=== PATIENT | female | born 1940 | race Caucasian/White ===

== ENCOUNTER → 2017-09-30 | Outpatient (CLI) | payer OTHER ==
[~2017-09-30] MED LIST: ASPIRIN EC81 M1 PO; AUGMENTIN 500-1 EACH PO; AZOPT OPHTH1 %/10 M1 OPHTHALMIC; BOTOX100 UNIT; CITRACAL-VIT D1 EAC2 PO; COMBIGAN EYE DR10 ML OPHTHALMIC; FARXIGA10 MG PO; GLUCOPHAGE500 MG PO; LIPITOR10 MG PO; LUMIGAN2.5 M1 OPHTHALMIC; MECLIZINE HCL25 M1 PO; MULTIVITAMINS PO; PROZAC 20 MG20 MG PO; SPIRONOLACTONE50 MG PO; VITAMIN B-12500 MCG PO
== END ==
LOC: M.RAD 10:43
DX: Z12.31 Encounter for screening mammogram for malignant neoplasm of breast (principal)

== ENCOUNTER 2018-05-27 09:41 | Inpatient (IN) | payer OTHER ==
[~2018-05-27] VITALS: Ht 157.5 cm; Wt 62.6 kg
--- NOTE | ~2018-05-27 | PROC ---
[address] [address] PROCEDURE REPORT Name: RICARDO BALDERAS Room: [address] IN .R.#: [id number] Admission: 05/27/18 Attend Phys: Cullen Haque MD Discharge: 05/29/18 Date of : 39 Report #: [id number] THIS REPORT FOR: //name// For GI report, please see the Provation report in Perceptive 7. By: 1629Medical Records Staff LAURA /MICHELL
[2018-05-27 09:41] VITALS: BP 153/69
[~2018-05-27 09:41] MED LIST changes: -AUGMENTIN 500-1 EACH PO; -CITRACAL-VIT D1 EAC2 PO; -FARXIGA10 MG PO; -VITAMIN B-12500 MCG PO
[2018-05-27] MEDS ORDERED: CITRACAL-VIT D1 EAC2 PO (09:57)
[2018-05-27] MEDS ORDERED: FARXIGA10 MG PO (09:57)
[2018-05-27] MEDS ORDERED: VITAMIN B-12500 MCG PO (09:58)
[2018-05-27] MEDS ORDERED: AUGMENTIN 500-1 EACH PO (09:59)
[2018-05-27 10:28] LABS: HEMATOCRIT 50.3 % (37.0-47.0); HEMOGLOBIN 16.6 gm/dL (12.0-15.0); MCH 31.8 pg (26.0-34.0); MCV 96.3 fL (80.0-100.0); MPV 8.1 fl. (7.2-11.1); NUCLEATED RBCS 0 /100WBC; PLATELET COUNT* 241 thou/uL (150-400); RBC 5.23 mil/uL (4.20-5.00); RDW-CV 12.8 % (10.5-14.5); WBC 9.6 thou/uL (4.0-11.0)
[2018-05-27 10:45] LABS: PROTIME 10.2 Seconds (9.20-11.50)
[2018-05-27 10:49] LABS: URINE BILIRUBIN NEGATIVE (Negative); URINE BLOOD NEGATIVE (Negative); URINE CLARITY CLEAR; URINE COLOR YELLOW; URINE GLUCOSE-RANDOM 3+ (Negative); URINE KETONES 2+ (Negative); URINE LEUKOCYTES-REFLEX NEGATIVE (Negative); URINE NITRITE-REFLEX NEGATIVE (Negative); URINE PROTEIN NEGATIVE (Negative); URINE UROBILINOGEN 0.2 E.U./dl (0.2-1.0)
[2018-05-27 10:54] LABS: ABSOLUTE LYMPHOCYTES 0.4 thou/uL (0.8-5.3); ABSOLUTE MONOCYTES 0.4 thou/uL (0.0-1.2); ABSOLUTE NEUTROPHILS 8.8 thou/uL (1.6-8.1); ANISOCYTOSIS 1+; PLATELET ESTIMATE ADEQUATE; POIKILOCYTOSIS 1+
[2018-05-27 11:01] LABS: ANION GAP 16 mmol/L (7-16); BUN 24 mg/dL (7-18); CALCIUM 10.1 mg/dL (8.5-10.1); CHLORIDE 101 mmol/L (98-107); CO2 20 mmol/L (21-32); CREATININE 0.7 mg/dL (0.6-1.3); GLUCOSE 236 mg/dL (70-99); POTASSIUM 3.8 mmol/L (3.5-5.1); SODIUM 137 mmol/L (136-145)
[2018-05-27 11:08] LABS: ALBUMIN 4.5 g/dL (3.4-5.0); ALKALINE PHOSPHATASE 105 U/L (46-116); LIPASE 592 U/L (73-393); SGOT 20 U/L (15-37); SGPT 25 U/L (30-65); TOTAL BILIRUBIN 0.6 mg/dL (<0.1-1.0); TOTAL PROTEIN 7.9 g/dL (6.4-8.2); TROPONIN-I LEVEL <0.06 ng/mL (<0.06)
[2018-05-27 12:55] VITALS: BP 144/72
--- NOTE | 2018-05-27 12:55 | NUR ---
ER ADMIT TO RM 225 TELEPHONE REPORT GIVEN PATIENT TO RM VIA CART ORIENTED TO RM AND CALL LIGHT DENIES PAIN
[2018-05-27 13:01] VITALS: BP 121/62
--- NOTE | 2018-05-27 14:36 | EKG ---
[place] [address] ELECTROCARDIOGRAM REPORT Name: ANDREYRICARDO Vic Room: [address] IN .R.#: [id number] Admission: 05/27/18 Attend Phys: Cullen Haque MD Discharge: Date of : 38 Report #: [id number] THIS REPORT FOR: //name// [facility] ED Test Date: 2018-05-27 Test Time: 10:21:31 Pat Name: RICARDO BALDERAS Department: Room: [facility] Gender: F Fuselage Framer: Manpreet SONG : 1940 Requested By: Ren Lundy Order Number: [id number] MD: Evens Guevara Measurements Intervals [place] Rate: 78 P: 54 DE: 210 QRS: 5 QRSD: 94 T: -8 QT: 374 QTc: 426 Interpretive Statements Sinus rhythm Possible left atrial enlargement Possible inferior infarct, old Possible anteroseptal infarct, old Compared to ECG 04/21/2012 17:21:18 No significant changes Electronically Signed On 05-27-2018 14:36:15 [employer] by Evens Guevara [email or web address] <ELECTRONICALLY SIGNED> By: Evens Guevara MD, FACC 05/27/18 1436 1021 1021 Evens Guevara MD, FAC /EPI
[2018-05-27 15:59] VITALS: BP 124/52
[2018-05-27 20:00] VITALS: BP 122/51
[2018-05-28] VITALS: BP 115/52
[2018-05-28 04:00] VITALS: BP 124/60
--- NOTE | 2018-05-28 05:53 | NUR ---
ASSUMED PATIENT CARE AT 1900. PATIENT RESTING IN BED, BRUNO CATH IN PLACE AND PATENT TO DEPENDENT DRAINAGE. DOES HAVE SOME RESIDUAL LEFT-SIDED WEAKNESS FROM PREVIOUS STROKE. NSR O THE MONITOR. UP WITH ONE ASSISST. NS INFUSING THROUGH PATENT IV AT A RATE ON 125ML/HR. NO COMLAINTS OF PAIN OR NAUSEA NOTED THROUGHOUT THE SHIFT. WILL CONTINUE TO MONITOR. ANGER CONTROL COUNSELOR AND HOURLY ROUNDING COMPLETED DOCUMENTED
[2018-05-28 05:58] LABS: ABSOLUTE EOSINOPHILS 0.1 thou/uL (0.0-0.7); ABSOLUTE LYMPHOCYTES 1.5 thou/uL (0.8-5.3); ABSOLUTE MONOCYTES 0.4 thou/uL (0.0-1.2); ABSOLUTE NEUTROPHILS 4.1 thou/uL (1.6-8.1); BASOPHILS 0.4 %; EOSINOPHILS 1.6 %; HEMATOCRIT 42.2 % (37.0-47.0); LYMPHOCYTES 24.6 %; MCH 31.6 pg (26.0-34.0); MCHC 33.3 g/dL (28.0-37.0); MCV 94.8 fL (80.0-100.0); MONOCYTES 6.9 %; MPV 8.4 fl. (7.2-11.1); NUCLEATED RBCS 0 /100WBC; PLATELET COUNT* 237 thou/uL (150-400); POLYS 66.5 %; RBC 4.45 mil/uL (4.20-5.00); RDW-CV 12.6 % (10.5-14.5); WBC 6.1 thou/uL (4.0-11.0)
[2018-05-28 06:08] LABS: CALCIUM 9.4 mg/dL (8.5-10.1); CREATININE 0.6 mg/dL (0.6-1.3); HEMOGLOBIN 14.1 gm/dL (12.0-15.0); POTASSIUM 3.8 mmol/L (3.5-5.1)
--- NOTE | 2018-05-28 07:15 | NUR ---
CHANGE OF SHIFT, BEDSIDE REPORT GIVEN PATIENT SEEN IN BED AND ASLEEP ASSUMED PATIENT CARE
[2018-05-28 08:00] VITALS: BP 138/63
[2018-05-28 12:00] VITALS: BP 151/67
--- NOTE | 2018-05-28 15:34 | NUR ---
Pt is A&O. Resides at home with her . Normally independent. No DME. No hx of HH or SNF. Goal is home at vt. Following.
[2018-05-28 16:05] VITALS: BP 128/66
[2018-05-28 20:00] VITALS: BP 113/51
[2018-05-29] VITALS (9 sets, daily range): BP systolic 109–165; BP diastolic 65–79
[2018-05-29 02:12] LABS: GLYCOHEMOGLOBIN (HGB A1C) 8.9 % (4.8-5.6)
[2018-05-29 04:45] LABS: HEMATOCRIT 43.7 % (37.0-47.0); HEMOGLOBIN 14.6 gm/dL (12.0-15.0); MCH 31.7 pg (26.0-34.0); MCHC 33.5 g/dL (28.0-37.0); MCV 94.5 fL (80.0-100.0); MPV 8.2 fl. (7.2-11.1); RBC 4.62 mil/uL (4.20-5.00); RDW-CV 12.8 % (10.5-14.5); WBC 4.8 thou/uL (4.0-11.0)
--- NOTE | 2018-05-29 05:26 | NUR ---
ASSUMED CARE OF PT AFTER REPORT AT 1930. PT A&OX4. VSS. PHYSICAL ASSESSMENT COMPLETED AND CHARTED. PT ON RA WITH 95% O2 SAT. PT TRACING SR 1ST DEG ON TELE. PT UP WITH 1 ASSIST TO RESTROOM. PT DENIES ANY PAIN, DIZZINESS OR DISCOMFORT. INSTRUCTED ON NPO POST MIDNIGHT FOR EGD TODAY. CONTRACTURE & WEAKNESS OF LEFT ARM NOTED RESIDUAL OF PREVIOUS STROKE. CALL LIGHT WITHIN REACH. BED IN LOW POSITION. BED ALARM ON.
--- NOTE | 2018-05-29 17:19 | NUR ---
PATIENT LEFT UNIT AT 1347. ALERT AND ORIENTED X4. UP WITH ASSIST X1 WITH CANE AND GAIT BELT. DENIES PAIN AND NAUSEA. TOLERATING DIET. EGD DONE TODAY. ALL PERSONAL ITEMS LEFT WITH PATIENT. DISCHARGE INSTRUCTIONS, PRESCRIPTIONS, AND NEW MEDICATION INFORMATION SENT WITH PATIENT. IV DC'D. VSS ON ROOM AIR. HOURLY ROUNDS HAVE BEEN MAINTAINED WHILE ON UNIT. LEFT WITH SPOUSE VIA CAR.
--- NOTE | 2018-06-10 12:30 | CON ---
[address] [address] CONSULTATION Name: RICARDO BALDERAS Room: [address] IN M.R.#: [id number] Admission: 05/27/18 Attend Phys: Cullen Haque MD Discharge: 05/29/18 Date of : 38 Report #: [id number] THIS REPORT FOR: //name// CC: Cullen Tena HISTORY OF PRESENT ILLNESS: The patient is a pleasant 78-year-old female with past medical history significant for hypertension, hyperlipidemia, stroke in 1993 with some resultant weakness, who is presenting for evaluation of nausea and vomiting. The patient reports her symptoms began rather abruptly yesterday with nausea, vomiting and dry heaving. The patient reports that she must have vomited more than 10 times and presented to another facility. At that facility, she was diagnosed with mild urinary tract infection and was placed on Augmentin. This seemed to have worsened her symptoms. The patient also reports that 2 days prior to presentation, she had Tacos at a new restaurant, and these did not "taste very well." The patient reports her symptoms have somewhat subsided since presentation. She does not have any significant abdominal pain, nausea, vomiting at this time. PAST MEDICAL HISTORY: As mentioned above. The patient has a past medical history of hypertension, hyperlipidemia, stroke and diabetes. PAST SURGICAL HISTORY: The patient had a complete hysterectomy in 1980. SOCIAL HISTORY: The patient denies smoking, alcohol or recreational drug use. FAMILY HISTORY: No significant family history noted. REVIEW OF SYSTEMS: A comprehensive 10-point review of systems is negative except already mentioned above. PHYSICAL EXAMINATION: VITAL SIGNS: Temperature 36.7, pulse rate 72, blood pressure 128/66, respirations 18. GENERAL: The patient is alert, awake, oriented x 3. HEENT: Pupils are equal, round, reactive to light and accommodation. Mucous membranes are moist. There is no congestion. LUNGS: Clear to auscultation bilateral. CARDIOVASCULAR: Rate and rhythm regular. S1, S2 present. ABDOMEN: Soft. There is no distention, guarding or rigidity. EXTREMITIES: Warm, well perfused. LABORATORY DATA: Hemoglobin 14.1, hematocrit 42.2, WBC count 6.1, platelet count 237. Sodium 141, potassium 3.8, chloride 107, bicarbonate 23, BUN 17, creatinine 0.6. INR 1.0. IMAGING: Abdominal and pelvic [place] [address] CONSULTATION Name: RICARDO BALDERAS Room: [address]#: [id number] Admission: 05/27/18 Attend Phys: Cullen Haque MD Discharge: 05/29/18 Date of : 39 Report #: [id number] lumbar spine, surgical changes of hysterectomy, clusters of the abdominal aorta and iliac arteries. Moderate ____ lung bases. ASSESSMENT AND PLAN: This is a very pleasant 78-year-old female presenting with multiple episodes of abdominal pain, nausea, vomiting. This may be related to food poisoning related to consumption of poorly cooked foods outside. The patient's symptoms are resolving on their own at this time. The patient has never had any EGD before and consider performing EGD tomorrow to rule out any mucosal disease. Further recommendations will be based on the results of EGD. <ELECTRONICALLY SIGNED> By: Eldon Reyes MD 06/10/18 1230 2017 1045Eldon Reyes MD /nt
== END 2018-05-29 13:47 | disposition home or self-care (01) | DRG 391 ==
LOC: M.ERS 09:41 → M.2W 11:34 → M.TBA-ER 11:34 → M.2W 13:05
PROVIDERS: Family Medicine; Internal Medicine; ADMIT Internal Medicine
PROC: 0DJ08ZZ Inspection of Upper Intestinal Tract, Via Natural or Artificial Opening Endoscopic (ICD-10-PCS; principal; 2018-05-29)
DX: R11.2 Nausea with vomiting, unspecified (principal); T36.0X5A Adverse effect of penicillins, initial encounter; G92 Toxic encephalopathy; E87.2 Acidosis; N39.0 Urinary tract infection, site not specified; K21.9 Gastro-esophageal reflux disease without esophagitis; E78.5 Hyperlipidemia, unspecified; E11.9 Type 2 diabetes mellitus without complications; E86.0 Dehydration; I10 Essential (primary) hypertension; H40.9 Unspecified glaucoma; K59.00 Constipation, unspecified; K57.90 Diverticulosis of intestine, part unspecified, without perforation or abscess without bleeding; E86.9 Volume depletion, unspecified; Z86.73 Personal history of transient ischemic attack (TIA), and cerebral infarction without residual deficits; Z88.1 Allergy status to other antibiotic agents; Z90.710 Acquired absence of both cervix and uterus; Z79.82 Long term (current) use of aspirin; Z79.899 Other long term (current) drug therapy

== ENCOUNTER → 2019-02-02 | Outpatient (CLI) | payer OTHER ==
[~2019-02-02] MED LIST changes: +AUGMENTIN 500-1 EACH PO; +CITRACAL-VIT D1 EAC2 PO; +FARXIGA10 MG PO; +VITAMIN B-12500 MCG PO
== END ==
LOC: M.RAD 01-26 15:30
DX: Z12.31 Encounter for screening mammogram for malignant neoplasm of breast (principal); M85.89 Other specified disorders of bone density and structure, multiple sites; N95.9 Unspecified menopausal and perimenopausal disorder

== ENCOUNTER 2019-03-10 08:10 | Inpatient (IN) | payer OTHER ==
[~2019-03-10] VITALS: Ht 160 cm; Wt 58.5 kg
[2019-03-10 08:20] VITALS: BP 173/82
[2019-03-10] MEDS ORDERED: METFORMIN HCL500 MG PO (08:24)
[2019-03-10 08:39] LABS: ABSOLUTE EOSINOPHILS 0.2 thou/uL (0.0-0.7); ABSOLUTE LYMPHOCYTES 1.6 thou/uL (0.8-5.3); ABSOLUTE MONOCYTES 0.4 thou/uL (0.0-1.2); ABSOLUTE NEUTROPHILS 5.8 thou/uL (1.6-8.1); BASOPHILS 0.5 %; EOSINOPHILS 1.9 %; HEMATOCRIT 48.7 % (37.0-47.0); HEMOGLOBIN 16.7 gm/dL (12.0-15.0); LYMPHOCYTES 20.4 %; MCH 32.4 pg (26.0-34.0); MCHC 34.2 g/dL (28.0-37.0); MCV 94.8 fL (80.0-100.0); MONOCYTES 5.2 %; MPV 7.7 fl. (7.2-11.1); NUCLEATED RBCS 0 /100WBC; PLATELET COUNT* 287 thou/uL (150-400); RBC 5.14 mil/uL (4.20-5.00); RDW-CV 12.9 % (10.5-14.5); WBC 8.1 thou/uL (4.0-11.0)
[2019-03-10 08:48] LABS: ANION GAP 11 mmol/L (7-16); BUN 20 mg/dL (7-18); CALCIUM 10.1 mg/dL (8.5-10.1); CHLORIDE 100 mmol/L (98-107); CO2 27 mmol/L (21-32); CREATININE 0.7 mg/dL (0.6-1.3); GLUCOSE 181 mg/dL (70-99); POTASSIUM 3.6 mmol/L (3.5-5.1); SODIUM 138 mmol/L (136-145)
[2019-03-10 08:52] LABS: APTT 33.1 Seconds (25.0-31.3); PROTIME 10.3 Seconds (9.20-11.50)
[2019-03-10 08:58] LABS: ALBUMIN 4.3 g/dL (3.4-5.0); ALKALINE PHOSPHATASE 97 U/L (46-116); NT-PRO BRAIN NAT PEPTIDE 96 pg/mL (<300); SGOT 16 U/L (15-37); SGPT 23 U/L (30-65); TOTAL BILIRUBIN 0.8 mg/dL (<0.1-1.0); TOTAL PROTEIN 8.1 g/dL (6.4-8.2); TROPONIN-I LEVEL <0.06 ng/mL (<0.06)
[2019-03-10 09:43] LABS: URINE BILIRUBIN NEGATIVE (Negative); URINE BLOOD NEGATIVE (Negative); URINE CLARITY CLEAR; URINE COLOR YELLOW; URINE GLUCOSE-RANDOM 3+ (Negative); URINE KETONES 2+ (Negative); URINE LEUKOCYTES-REFLEX NEGATIVE (Negative); URINE NITRITE-REFLEX NEGATIVE (Negative); URINE PROTEIN NEGATIVE (Negative); URINE SPECIFIC GRAVITY 1.015 (1.005-1.030); URINE UROBILINOGEN 0.2 E.U./dl (0.2-1.0)
--- NOTE | 2019-03-10 10:42 | NUR ---
REPORT GIVEN TO DUKE TURNER WHO IS TO ASSUME PT CARE INPATIENT NURSE.
[2019-03-10 10:43] VITALS: BP 124/61
[2019-03-10 11:00] VITALS: BP 154/73
--- NOTE | 2019-03-10 11:41 | EKG ---
[place] [address] ELECTROCARDIOGRAM REPORT Name: RAJI BALDERASNA THOR Room: [address] ADM IN M.R.#: [id number] Admission: 03/10/19 Attend Phys: Cullen Haque MD Discharge: Date of : 39 Report #: [id number] THIS REPORT FOR: //name// [facility] ED Test Date: 2019-03-10 Test Time: 08:26:43 Pat Name: RICARDO BALDERAS Department: Room: [facility] Gender: F Job Honer: : 1940 Requested By: Ren Lundy Order Number: [id number] MD: Amando Wilkinson Measurements Intervals [place] Rate: 85 P: 70 TN: 174 QRS: -1 QRSD: 91 T: -26 QT: 344 QTc: 409 Interpretive Statements Sinus rhythm Ventricular premature complex Inferior infarct, age indeterminate Anterior infarct, old Compared to ECG 05/27/2018 10:21:31 Ventricular premature complex(es) now present Myocardial infarct finding still present Electronically Signed On 03-10-2019 11:40:45 CDT by Amando Wilkinson [email or web address] <ELECTRONICALLY SIGNED> By: Amando Wilkinson MD, [facility] 03/10/19 1140 0826 Amando Wilkinson MD, [facility] /EPI
[2019-03-10 15:48] VITALS: BP 145/68
--- NOTE | 2019-03-10 16:22 | NUR ---
PT ADMITTED TO ROOM 208 AROUND 1100 TODAY FOR DIZZINESS. NEUROLOGY CONSULTED AND ORDERED MRI'S FOR PT. UNABLE TO COMPLETE TODAY D/T MRI MACHINE UNDER MAINTENANCE. PT STATES NAUSEA HAS SUBSIDED SINCE BEING IN ED. DIZZINESS HAS IMPROVED BUT IS STILL NOTICABLE WHEN AMBULATING TO BATHROOM. VSS. TELE SR WITH PVCS. NO OTHER CONCERNS AT THIS TIME. CLWR. WCTM.
[2019-03-10 19:50] VITALS: BP 121/64
[2019-03-11] VITALS: BP 126/61
[2019-03-11 04:00] VITALS: BP 142/69
[2019-03-11 05:26] LABS: ABSOLUTE EOSINOPHILS 0.2 thou/uL (0.0-0.7); ABSOLUTE LYMPHOCYTES 2.2 thou/uL (0.8-5.3); ABSOLUTE MONOCYTES 0.4 thou/uL (0.0-1.2); ABSOLUTE NEUTROPHILS 2.1 thou/uL (1.6-8.1); BASOPHILS 0.7 %; EOSINOPHILS 3.1 %; HEMATOCRIT 40.5 % (37.0-47.0); LYMPHOCYTES 45.5 %; MCH 31.9 pg (26.0-34.0); MCHC 33.6 g/dL (28.0-37.0); MCV 95.2 fL (80.0-100.0); MONOCYTES 7.3 %; MPV 7.8 fl. (7.2-11.1); NUCLEATED RBCS 0 /100WBC; PLATELET COUNT* 234 thou/uL (150-400); POLYS 43.4 %; RBC 4.26 mil/uL (4.20-5.00); RDW-CV 12.3 % (10.5-14.5); WBC 4.9 thou/uL (4.0-11.0)
[2019-03-11 05:34] LABS: HEMOGLOBIN 13.6 gm/dL (12.0-15.0)
[2019-03-11 05:36] LABS: CHOLESTEROL 197 mg/dL (<200); HDL CHOLESTEROL 39 mg/dL (>40); LDL CHOLESTEROL 136 mg/dL (<100); TC:HDL 5.1 Ratio (Not establshd); TRIGLYCERIDE 114 mg/dL (<150); VLDL 23 mg/dL (<40)
[2019-03-11 05:38] LABS: CALCIUM 9.1 mg/dL (8.5-10.1); CREATININE 0.6 mg/dL (0.6-1.3); POTASSIUM 3.7 mmol/L (3.5-5.1)
[2019-03-11 05:43] LABS: SERUM ASSESSMENT Clear
--- NOTE | 2019-03-11 07:47 | NUR ---
PT CARE ASSUMED AT 1930. SAT MAINTAINED IN RA. CALL LIGHT WITHIN REACH AND BED IN LOW POSITION. ALERT AND ORIENTED X4. DENIES PAIN AND SOB. PT STIL COMPLAINS OF DIZZINESS AT TIMES. UP WITH ASSIST. HOURLY ROUNDING DONE FOR PT SAFETY.
[2019-03-11 08:00] VITALS: BP 128/57
--- NOTE | 2019-03-11 08:00 | NUR ---
ASSUMED PT. CARE AND RECEIVED REPORT AT 0730. PT A/OX4, VSS, MONITOR ON TRACING SR. PT. DENIES CURRENT PAIN/SOB. REPORTS DIZZINESS HAS IMPROVED SINCE ADMISSION, HOWEVER IS STILL PRESENT AND WORSE WHEN LAYING DOWN THAN MOVING. FULL ASSESSMENT COMPLETED, REFER TO CHARTING. FALL PRECUATIONS IN PLACE, CALL LIGHT IN REACH.
[2019-03-11 12:27] VITALS: BP 132/64
[2019-03-11 14:00] VITALS: BP 132/64
[2019-03-11] MEDS ORDERED: LIPITOR40 MG PO (14:30)
--- NOTE | 2019-03-11 14:35 | NUR ---
I have reviewed the documentation by PHANI CHENG from 03/10/19 to 03/11/19 and I concur with it. ERINN STEELE
--- NOTE | 2019-03-11 15:13 | NUR ---
DC ORDERS RECEIVED. IV AND MONITOR REMOVED. PT. GIVEN DC INSTRUCTIONS, SCRIPTS, AND CARENOTES. PT. LEFT VIA WHEELCHAIR TO RETURN HOME IN PERSONAL VEHICLE WITH SPOUSE, ALL BELONGINGS ACCOUNTED FOR.
--- NOTE | 2019-03-12 10:45 | CON ---
[facility] [address] [place] [address] CONSULTATION Name: ANDREYRICARDO THOR Room: [address] IN M.R.#: [id number] Admission: 03/10/19 Attend Phys: Cullen Haque MD Discharge: 03/11/19 Date of : 39 Report #: [id number] THIS REPORT FOR: //name// CC: Cullen Mccarthy DATE OF SERVICE: 03/11/2019 HISTORY OF PRESENT ILLNESS: This is an 79-year-old female patient who was evaluated by me for any neurological etiology for the patient's dizziness. The patient was seen last night as well as this morning. She believes the dizziness is better. Dizziness was nonspecific with the room spinning. She does not know any aggravating or relieving factors for that. REVIEW OF SYSTEMS: Positive for stroke on the left side. This was long time ago. She still takes aspirin. REVIEW OF SYSTEMS: A 14-point review of system was carried out. She had a stroke in the past, but she has been stable for a long time. She had hysterectomy in the past. She has a history of diabetes. PAST MEDICAL HISTORY: Positive for stroke affecting the left side of the body. FAMILY HISTORY: Negative for early-age stroke. SOCIAL HISTORY: She does not drink any alcohol. PHYSICAL EXAMINATION: NEUROLOGIC: The patient is alert, responsive, able to follow simple and complex command. She has left spastic hemiparesis. Rest of the neurological examinations appear noncontributory. CARDIAC: Unremarkable. VITAL SIGNS: Blood pressure is 132/64, pulse is 76 and temperature is 97.6. LABORATORY DATA: Indicate a normal white count. IMAGING: MRIs and MRA were reviewed. They were unremarkable. IMPRESSION AND PLAN: It is unlikely that there is any neurological etiology for the patient's symptoms. I will suggest checking for other etiologies including ENT and cardiac etiology. If none is found in that regard and the patient continued to be symptomatic, she should see us back in the office. A total of 50 minutes of time was spent taking care [place] [address] CONSULTATION Name: RICARDO BALDERAS Room: [address]#: [id number] Admission: 03/10/19 Attend Phys: Cullen Haque MD Discharge: 03/11/19 Date of : 39 Report #: [id number] majority of that time was spent counseling this patient and coordinating her care. <ELECTRONICALLY SIGNED> By: Yaniv Stone MD 03/12/19 1045 1420 2151Ploida Stone MD /nt
== END 2019-03-11 15:15 | disposition home or self-care (01) | DRG 149 ==
LOC: M.ERS 08:10 → M.2W 09:00 → M.TBA-ER 09:00 → M.2W 10:51
PROVIDERS: Family Medicine; ADMIT Internal Medicine
DX: R42 Dizziness and giddiness (principal); I69.354 Hemiplegia and hemiparesis following cerebral infarction affecting left non-dominant side; H40.9 Unspecified glaucoma; E11.9 Type 2 diabetes mellitus without complications; I10 Essential (primary) hypertension; K21.9 Gastro-esophageal reflux disease without esophagitis; E78.5 Hyperlipidemia, unspecified; Z90.710 Acquired absence of both cervix and uterus; Z88.1 Allergy status to other antibiotic agents; Z88.2 Allergy status to sulfonamides; Z88.8 Allergy status to other drugs, medicaments and biological substances; Z79.82 Long term (current) use of aspirin; Z79.899 Other long term (current) drug therapy

== ENCOUNTER 2019-12-03 14:52 | Inpatient (IN) | payer MEDICARE ==
[~2019-12-03] VITALS: Ht 165.1 cm; Wt 69.2 kg
[~2019-12-03 14:52] MED LIST changes: +LIPITOR40 MG PO; +METFORMIN HCL500 MG PO
[2019-12-03 14:53] VITALS: BP 140/66
[2019-12-03 15:41] LABS: APTT 24.7 Seconds (25.0-31.3); INR 1.1; PROTIME 11.1 Seconds (9.20-11.50)
[2019-12-03 16:14] LABS: ABSOLUTE LYMPHOCYTES 1.2 thou/uL (0.8-5.3); ABSOLUTE MONOCYTES 0.5 thou/uL (0.0-1.2); ABSOLUTE NEUTROPHILS 8.1 thou/uL (1.6-8.1); BASOPHILS 0.5 %; EOSINOPHILS 0.1 %; HEMOGLOBIN 15.1 gm/dL (12.0-15.0); LYMPHOCYTES 12.5 %; MCH 32.9 pg (26.0-34.0); MCHC 35.1 g/dL (28.0-37.0); MCV 93.6 fL (80.0-100.0); MPV 8.1 fl. (7.2-11.1); NUCLEATED RBCS 0 /100WBC; PLATELET COUNT* 300 thou/uL (150-400); POLYS 81.9 %; RDW-CV 12.9 % (10.5-14.5); WBC 9.8 thou/uL (4.0-11.0)
[2019-12-03 16:19] LABS: CALCIUM 9.7 mg/dL (8.5-10.1); CREATININE 0.8 mg/dL (0.6-1.3); POTASSIUM 3.6 mmol/L (3.5-5.1)
[2019-12-03 16:32] LABS: ALBUMIN 4.6 g/dL (3.4-5.0); TOTAL PROTEIN 8.3 g/dL (6.4-8.2)
[2019-12-03 17:27] LABS: URINE BILIRUBIN NEGATIVE (Negative); URINE BLOOD NEGATIVE (Negative); URINE CLARITY CLEAR; URINE COLOR YELLOW; URINE GLUCOSE-RANDOM TRACE (Negative); URINE KETONES 2+ (Negative); URINE LEUKOCYTES-REFLEX NEGATIVE (Negative); URINE NITRITE-REFLEX NEGATIVE (Negative); URINE PROTEIN TRACE (Negative); URINE SPECIFIC GRAVITY 1.015 (1.005-1.030); URINE UROBILINOGEN 0.2 E.U./dl (0.2-1.0)
[2019-12-03 18:08] VITALS: BP 131/58
[2019-12-03 20:00] VITALS: BP 141/73
[2019-12-03 23:36] VITALS: BP 148/91
[2019-12-04 04:00] VITALS: BP 138/64
[2019-12-04 04:47] LABS: ABSOLUTE LYMPHOCYTES 1.8 thou/uL (0.8-5.3); ABSOLUTE MONOCYTES 0.7 thou/uL (0.0-1.2); ABSOLUTE NEUTROPHILS 6.5 thou/uL (1.6-8.1); BASOPHILS 0.3 %; EOSINOPHILS 0.5 %; HEMATOCRIT 36.7 % (37.0-47.0); LYMPHOCYTES 19.6 %; MCH 33.1 pg (26.0-34.0); MCHC 35.3 g/dL (28.0-37.0); MCV 93.9 fL (80.0-100.0); MPV 8.5 fl. (7.2-11.1); NUCLEATED RBCS 0 /100WBC; PLATELET COUNT* 247 thou/uL (150-400); POLYS 71.6 %; RBC 3.91 mil/uL (4.20-5.00); RDW-CV 12.4 % (10.5-14.5); WBC 9.1 thou/uL (4.0-11.0)
[2019-12-04 04:55] LABS: CALCIUM 8.9 mg/dL (8.5-10.1); CREATININE 0.6 mg/dL (0.6-1.3); POTASSIUM 3.1 mmol/L (3.5-5.1)
--- NOTE | 2019-12-04 07:17 | NUR ---
ASSUMED PT CARE AT 1915. NURSING ASSESSMENT COMPLETED AT START OF SHIFT. SR WITH 1D ON HEAD OF MARKETING. PT C/O HEADACHE AND EARACHE THIS SHIFT, TYLENOL NOT EFFECTIVE. DR. ESCAMILLA NOTIFIED AND NEW ORDERS RECEIVED. PT C/O NAUSEAX2 THIS SHIFT. PRN ZOFRAN ADMINISTERED AND EFFECTIVE. HIGH FALL PRECAUTIONS IN PLACE. CALL LIGHT WITHIN REACH.
[2019-12-04 07:39] VITALS: BP 144/70
--- NOTE | 2019-12-04 11:07 | EKG ---
[place] [address] ELECTROCARDIOGRAM REPORT Name: RICARDO BALDERAS Room: [address] M.R.#: [id number] Admission: 12/03/19 Attend Phys: Cullen Haque, Discharge: Date of : 39 Date of Service: 12/03/19 1602 Report #: [id number] THIS REPORT FOR: //name// [facility] ED Test Date: 2019-12-03 Test Time: 16:02:34 Pat Name: RICARDO BALDERAS Department: Room: [facility] Gender: F Talent Acquisition Administrator: R[place] : 1940 Requested By: Ren Lundy Order Number: [id number] MD: Christ Butler Measurements Intervals [place] Rate: 96 P: 55 [place]: 190 QRS: 21 QRSD: 93 T: -10 QT: 343 QTc: 434 Interpretive Statements Sinus rhythm Probable left atrial enlargement Inferior infarct, old possible Anterior infarct, old Compared to ECG 03/10/2019 08:26:43 Ventricular premature complex(es) no longer present Myocardial infarct finding still present Electronically Signed On 12-04-2019 11:05:29 CDT by Christ Butler [email or web address] <ELECTRONICALLY SIGNED> By: Christ Butler MD, [facility] 12/04/19 1105 160 1602 Christ Butler MD, [facility] /EPI
[2019-12-04 11:46] VITALS: BP 145/77
--- NOTE | 2019-12-04 15:22 | NUR ---
Pt is A&O. Resides at home with . Independent. Pt has a cane for mobility. No o2. Hx of HH post surgery in 1993. Hx of acute rehab in 1993. Pt plans on f/u with [facility] regarding botox injections for her side. Goal is home at ne. Pt will either dc today or tomorrow pending further testing. Following
[2019-12-04 16:11] VITALS: BP 149/70
--- NOTE | 2019-12-04 17:01 | NUR ---
PT REPORTS HEADACHE WITH VISION BLURRY. DR ESCAMILLA AND DR SLOAN NOTIFIED. DR LUTHER JACOBVES IT IS A MIGRAINE. PRN HYDROCODONE GIVEN. NO FURHTER ORDERS.
[2019-12-04 19:15] VITALS: BP 146/73
[2019-12-05 00:14] VITALS: BP 118/61
[2019-12-05 04:17] VITALS: BP 120/56
--- NOTE | 2019-12-05 05:49 | NUR ---
patient progressing towards goals: pain and nausea managed with medication per mar and relaxation techniques. patient up with assist x1 to bedside commode. call light within reach
[2019-12-05 08:00] VITALS: BP 132/63
[2019-12-05 13:10] VITALS: BP 153/72
[2019-12-05 13:53] LABS: CALCIUM 9.6 mg/dL (8.5-10.1); CREATININE 0.8 mg/dL (0.6-1.3); POTASSIUM 3.5 mmol/L (3.5-5.1)
[2019-12-05 13:58] LABS: ALBUMIN 3.9 g/dL (3.4-5.0); TOTAL BILIRUBIN 0.6 mg/dL (<0.1-1.0); TOTAL PROTEIN 7.6 g/dL (6.4-8.2)
[2019-12-05 14:21] LABS: ABSOLUTE EOSINOPHILS 0.1 thou/uL (0.0-0.7); ABSOLUTE LYMPHOCYTES 1.5 thou/uL (0.8-5.3); ABSOLUTE MONOCYTES 0.5 thou/uL (0.0-1.2); ABSOLUTE NEUTROPHILS 4.5 thou/uL (1.6-8.1); BASOPHILS 0.5 %; EOSINOPHILS 1.8 %; HEMATOCRIT 40.6 % (37.0-47.0); HEMOGLOBIN 14.1 gm/dL (12.0-15.0); LYMPHOCYTES 22.6 %; MCH 33.2 pg (26.0-34.0); MCHC 34.7 g/dL (28.0-37.0); MCV 95.6 fL (80.0-100.0); MPV 8.4 fl. (7.2-11.1); NUCLEATED RBCS 0 /100WBC; PLATELET COUNT* 267 thou/uL (150-400); POLYS 68.1 %; RBC 4.25 mil/uL (4.20-5.00); RDW-CV 12.1 % (10.5-14.5); WBC 6.6 thou/uL (4.0-11.0)
[2019-12-05 16:21] LABS: CHOLESTEROL 133 mg/dL (<200); HDL CHOLESTEROL 49 mg/dL (>40); LDL CHOLESTEROL 66 mg/dL (<100); TC:HDL 2.7 Ratio (Not establshd); TRIGLYCERIDE 94 mg/dL (<150); VLDL 19 mg/dL (<40)
[2019-12-05 16:26] LABS: SERUM ASSESSMENT Clear
[2019-12-05 16:42] VITALS: BP 145/83
[2019-12-05 16:59] LABS: URINE BILIRUBIN NEGATIVE (Negative); URINE BLOOD NEGATIVE (Negative); URINE CLARITY CLEAR; URINE COLOR STRAW; URINE GLUCOSE-RANDOM TRACE (Negative); URINE KETONES NEGATIVE (Negative); URINE LEUKOCYTES NEGATIVE (Negative); URINE NITRITE NEGATIVE (Negative); URINE PROTEIN NEGATIVE (Negative); URINE SPECIFIC GRAVITY <= 1.005 (1.005-1.030); URINE UROBILINOGEN 0.2 E.U./dl (0.2-1.0)
[2019-12-05 20:00] VITALS: BP 154/80
[2019-12-05] MEDS ORDERED: BRIMONIDINE TART5 ML EA. EYE (20:31)
[2019-12-05] MEDS ORDERED: LATANOPROST 0.2.5 ML OPHTHALMIC (20:32)
[2019-12-05] MEDS ORDERED: COSOPT OCUMETER10 M1 EA. EYE (20:32)
[2019-12-05] MEDS ORDERED: DORZOLAMIDE HCL10 ML EA. EYE (20:35)
[2019-12-06 00:33] VITALS: BP 125/65
[2019-12-06 04:38] LABS: ALBUMIN 3.3 g/dL (3.4-5.0); CALCIUM 9.2 mg/dL (8.5-10.1); CREATININE 0.7 mg/dL (0.6-1.3); POTASSIUM 3.4 mmol/L (3.5-5.1); TOTAL BILIRUBIN 0.5 mg/dL (<0.1-1.0); TOTAL PROTEIN 6.4 g/dL (6.4-8.2)
--- NOTE | 2019-12-06 05:44 | NUR ---
ASSUMED PT CARE AT 1930. NURSING ASSESSMENT COMPLETED AT START OF SHIFT. PT VOICED NO CONCERNS THIS SHIFT. DENIES N/V. SR ON HEALTHCARE CONSULTANT. HOURLY ROUNDING COMPLETED. HIGH FALL PRECAUTIONS IN PLACE. CALL LIGHT WITHIN REACH.
[2019-12-06 06:00] VITALS: BP 156/85
[2019-12-06 07:37] VITALS: BP 141/65
[2019-12-06 12:14] VITALS: BP 152/73
--- NOTE | 2019-12-06 16:48 | NUR ---
ASSUMED PT CARE AT 0700, PT A&O X4, UP WITH ASSIST X1 AND CANE, PT APPEARS MUCH STRONGER IN HER LOWER EXTREMITIES THIS SHIFT, REMAINS FLACCID IN LEFT UPPER EXTREMITY FROM PREVIOUS CVA, DATA COMMUNICATIONS TECHNICIAN TRACING SINUS RHYTHM. PT HAS NOT HAD ANY INCONTINENT EPISODES THIS SHIFT, CONT TO TRANSFER TO BEDSIDE COMMODE, HOURLY ROUNDING COMPLETED.
[2019-12-06 17:12] VITALS: BP 130/59
[2019-12-06 20:00] VITALS: BP 126/62
[2019-12-07] VITALS: BP 128/64
[2019-12-07 02:07] LABS: GLYCOHEMOGLOBIN (HGB A1C) 6.8 % (4.8-5.6)
[2019-12-07 04:00] VITALS: BP 154/75
--- NOTE | 2019-12-07 05:53 | NUR ---
ASSUMED PT CARE AT 1930. NURSING ASSESSMENT COMPLETED AT START OF SHIFT. PT C/O HEADACHE THIS SHIFT X1. PRN PAIN MED ADMINISTERED/ SEE EMAR FOR DOCUMENTATION. HIGH FALL PRECAUTIONS IN PLACE. CALL LIGHT WITHIN REACH.
[2019-12-07 15:41] LABS: URINE BILIRUBIN NEGATIVE (Negative); URINE BLOOD NEGATIVE (Negative); URINE CLARITY CLEAR; URINE COLOR YELLOW; URINE GLUCOSE-RANDOM TRACE (Negative); URINE KETONES NEGATIVE (Negative); URINE LEUKOCYTES NEGATIVE (Negative); URINE NITRITE NEGATIVE (Negative); URINE PROTEIN NEGATIVE (Negative); URINE UROBILINOGEN 0.2 E.U./dl (0.2-1.0)
--- NOTE | 2019-12-07 15:44 | NUR ---
Pt declined skilled or rehab, Pt discharging to home today.
[2019-12-07 16:14] VITALS: BP 120/69
[2019-12-07 16:23] VITALS: BP 120/69
[2019-12-07] MEDS ORDERED: PLAVIX 75 MG TA75 MG PO (17:27)
--- NOTE | 2019-12-07 18:45 | NUR ---
ASSUMED PT CARE AT 0700, PT A&O X4 BUT FORGETFUL, VSS, RA, DIRECTOR OF REAL ESTATE TRACING SINUS RHYTHM, UP WITH ASSIST X1 AND QUAD CANE. PT DISCHARGED HOME AT APPROX 1830 WITH SON, PT AND SON EDUCATED ON ALL DISCHARGE INSTRUCTIONS INCLUDING FOLLOW UP APPOINTMENTS AND MEDICATIONS. IV AND DIRECTOR OF REAL ESTATE REMOVED, HOURLY ROUNDING COMPLETED.
== END 2019-12-07 18:30 | disposition home or self-care (01) | DRG 64 ==
LOC: M.ERS 14:52 → M.2W 17:05 → M.TBA-ER 17:05 → M.2W 19:39 → M.TBA-ER 19:39 → M.2W 20:11 → M.TBA-ER 20:11 → M.2W 20:51
PROVIDERS: Family Medicine; Internal Medicine; Psychiatry & Neurology Neurology; ADMIT Internal Medicine
DX: I63.9 Cerebral infarction, unspecified (principal); G92 Toxic encephalopathy; I69.354 Hemiplegia and hemiparesis following cerebral infarction affecting left non-dominant side; K21.9 Gastro-esophageal reflux disease without esophagitis; E78.5 Hyperlipidemia, unspecified; R11.2 Nausea with vomiting, unspecified; E86.0 Dehydration; E11.9 Type 2 diabetes mellitus without complications; G43.111 Migraine with aura, intractable, with status migrainosus; H40.9 Unspecified glaucoma; T45.515A Adverse effect of anticoagulants, initial encounter; Z90.710 Acquired absence of both cervix and uterus; Z79.82 Long term (current) use of aspirin; Z79.84 Long term (current) use of oral hypoglycemic drugs; Z79.899 Other long term (current) drug therapy; Z88.1 Allergy status to other antibiotic agents; Z88.2 Allergy status to sulfonamides; Z79.01 Long term (current) use of anticoagulants; Y92.89 Other specified places as the place of occurrence of the external cause

== ENCOUNTER 2020-09-04 19:02 | Observation (INO) | payer MEDICARE ==
[~2020-09-04] VITALS: Ht 162.6 cm; Wt 62.6 kg
[~2020-09-04 19:02] MED LIST changes: +BRIMONIDINE TART5 ML EA. EYE; +COSOPT OCUMETER10 M1 EA. EYE; +DORZOLAMIDE HCL10 ML EA. EYE; +LATANOPROST 0.2.5 ML OPHTHALMIC; +PLAVIX 75 MG TA75 MG PO
[2020-09-04 19:05] VITALS: BP 134/80
[2020-09-04 19:39] LABS: ABSOLUTE EOSINOPHILS 0.1 thou/uL (0.0-0.7); ABSOLUTE LYMPHOCYTES 1.3 thou/uL (0.8-5.3); ABSOLUTE MONOCYTES 0.6 thou/uL (0.0-1.2); ABSOLUTE NEUTROPHILS 7.1 thou/uL (1.6-8.1); BASOPHILS 0.4 %; EOSINOPHILS 0.9 %; HEMOGLOBIN 13.5 gm/dL (12.0-15.0); LYMPHOCYTES 14.5 %; MCH 32.1 pg (26.0-34.0); MCHC 34.5 g/dL (28.0-37.0); MONOCYTES 6.8 %; MPV 7.6 fl. (7.2-11.1); NUCLEATED RBCS 0 /100WBC; PLATELET COUNT* 322 thou/uL (150-400); POLYS 77.4 %; RBC 4.19 mil/uL (4.20-5.00); RDW-CV 12.2 % (10.5-14.5); WBC 9.2 thou/uL (4.0-11.0)
[2020-09-04 19:48] LABS: CALCIUM 8.5 mg/dL (8.5-10.1); CREATININE 0.8 mg/dL (0.6-1.3); POTASSIUM 3.8 mmol/L (3.5-5.1)
[2020-09-04 19:50] LABS: PROTIME 10.6 Seconds (9.20-11.50)
[2020-09-04 19:59] LABS: ALBUMIN 3.9 g/dL (3.4-5.0); TOTAL BILIRUBIN 0.3 mg/dL (<0.1-1.0); TOTAL PROTEIN 7.2 g/dL (6.4-8.2)
[2020-09-04 22:05] LABS: URINE BILIRUBIN NEGATIVE (Negative); URINE BLOOD NEGATIVE (Negative); URINE CLARITY CLEAR; URINE COLOR YELLOW; URINE GLUCOSE-RANDOM 1+ (Negative); URINE KETONES 1+ (Negative); URINE LEUKOCYTES-REFLEX NEGATIVE (Negative); URINE NITRITE-REFLEX NEGATIVE (Negative); URINE PROTEIN 1+ (Negative); URINE SPECIFIC GRAVITY >= 1.030 (1.005-1.030)
[2020-09-05 00:45] VITALS: BP 124/62
[2020-09-05 01:00] VITALS: BP 116/61
--- NOTE | 2020-09-05 01:00 | NUR ---
RECEIVED REPORT FROM ER, PT TO ROOM. AMBULATED TO BR WITH ASSIST DUE TO LT ARM WEAKNESS AND DIZZINESS. GAIT STEADY. TELEMETRY APPLIED SHOWING SR. C/O NECK AND HEAD PAIN. WILL GIVE MED. SEE ADMISSION ASSESSMENT AND HX. WILL CONT TO MONITOR AND ASSIST NEEDED.
[2020-09-05 05:29] VITALS: BP 117/59
--- NOTE | 2020-09-05 07:59 | NUR ---
SLEPT WELL AFTER TYLENOL GIVEN. C/O HEAD AND NECK PAIN. ASSISTED TO BSC, MOVES WELL. TELEMETRY CONT TO SHOW SR. HS GOALS OF REST AND SAFETY ACHIEVED. HOURLY ROUNDING OBSERVED.
--- NOTE | 2020-09-05 11:12 | EKG ---
[place] [address] ELECTROCARDIOGRAM REPORT Name: RICARDO BALDERAS Room: [address]R.#: [id number] Admission: 09/04/20 Attend Phys: Wally Salazar, Discharge: Date of : 38 Date of Service: 09/04/201916 Report #: [id number] THIS REPORT FOR: //name// [facility] ED Test Date: 2020-09-04 Test Time: 19:17:49 Pat Name: RICARDO BALDERAS Department: Room: [facility] Gender: F Squeegeer [facility]: [facility] : 1940 Requested By: Kathleen Osman Order Number: [id number] MD: Amando Wilkinson Measurements Intervals [place] Rate: 84 P: 101 NE: 179 QRS: 43 QRSD: 84 T: 31 QT: 371 QTc: 439 Interpretive Statements Sinus rhythm Anterior infarct, old Compared to ECG 12/03/2019 16:02:34 No significant changes Electronically Signed On 09-05-2020 11:12:27 PROGRAM [employer]OC[employer] by Amando Wilkinson [email or web address] <ELECTRONICALLY SIGNED> By: Amando Wilkinson MD, FACC 09/05/20 1112 16 16 Amando Wilkinson MD, [facility] /EPI
[2020-09-05 12:00] VITALS: BP 119/67
--- NOTE | 2020-09-05 14:26 | NUR ---
cm completed the initial assessment. pt is a&ox4. pt is semi-dependent on some cares. pt stated her spouse usu helps her w/cares. pt is from home w/spouse; however, he is currently in rehab d/t recent sx. pt son, sherrell is staying w/pt. tressa spk w/sherrell he stated pt will not be left alone, btwn he and is brother someone will be w/her until her spouse is back home. pt has cane. pt is currently receiving outpt pt, but wants hh d/t the fact her normally drives her as pt cannot drive. pt stated she used hh 25 y/a but doesnt recall and does not have a preference. cm faxed orders to [facility]. tressa spk w/[facility] who stated they will start care on sat. pt and sherrell both notified by this cm that [facility] will contact pt at home to arrange visits.
[2020-09-05 14:30] VITALS: BP 119/67
[2020-09-05 15:24] VITALS: BP 119/67
--- NOTE | 2020-09-05 15:35 | NUR ---
PT IS ALERT, PLEASANT AND RESPONDS READILY. PT DENIES ANY DIZZINESS THIS SHIFT. PT HAS NO C/O DISCOMFORT OR PAIN. SAFETY MEASURES IN PLACE. PT UP TO BSC WITH STAND BY ASSIST. ASSESSMENT COMPLETED AND MEDICATIONS ADMINISTERED ORDERS WERE ACKNOWLEDGED. DISCHARGE ORDERS GIVEN TO PT AND ALSO REVIEWED WITH SON VIA TELEPHONE. NURSING STAFF ASSISTED PT VIA WC TO MEET PT'S SON AT MAIN ENTRANCE.
== END 2020-09-05 16:00 | disposition home or self-care (01) ==
LOC: M.ERS 19:02 → M.2W 22:38 → M.TBA-ER 22:38 → M.2W 09-05 00:51
PROVIDERS: Emergency Medicine; ADMIT Internal Medicine; ATTEND Internal Medicine
DX: R42 Dizziness and giddiness (principal); K21.9 Gastro-esophageal reflux disease without esophagitis; E78.5 Hyperlipidemia, unspecified; H40.9 Unspecified glaucoma; E11.9 Type 2 diabetes mellitus without complications; Z90.49 Acquired absence of other specified parts of digestive tract; Z86.73 Personal history of transient ischemic attack (TIA), and cerebral infarction without residual deficits; W19.XXXA Unspecified fall, initial encounter; Y93.89 Activity, other specified; Y92.89 Other specified places as the place of occurrence of the external cause; Y99.8 Other external cause status

== ENCOUNTER 2021-05-03 15:29 | Emergency (ER) | payer MEDICARE ==
[~2021-05-03] VITALS: Ht 165.1 cm; Wt 63.5 kg
[2021-05-03] MEDS ORDERED: FAMOTIDINE 20 M20 MG PO (15:35)
[2021-05-03] MEDS ORDERED: CELEXA 20 MG TA20 MG PO (15:35)
[2021-05-03] MEDS ORDERED: GLIMEPIRIDE1 MG PO (15:36)
[2021-05-03 15:57] LABS: URINE BILIRUBIN NEGATIVE (Negative); URINE BLOOD 1+ (Negative); URINE CLARITY TURBID; URINE COLOR YELLOW; URINE GLUCOSE-RANDOM NEGATIVE (Negative); URINE KETONES NEGATIVE (Negative); URINE LEUKOCYTES-REFLEX 1+ (Negative); URINE NITRITE-REFLEX NEGATIVE (Negative); URINE PROTEIN TRACE (Negative); URINE SPECIFIC GRAVITY 1.015 (1.005-1.030); URINE UROBILINOGEN 0.2 E.U./dl (0.2-1.0)
[2021-05-03 16:12] LABS: CASTS None Seen /LPF (None Seen); CRYSTALS None Seen /LPF (None Seen); MUCUS None Seen strn/LPF (None Seen); SQUAMOUS 0-3 Few /LPF (0-3)
[2021-05-03 16:13] LABS: URINE RBC 3-10 Few /HPF (0-2); URINE WBC-REFLEX >25 Many /HPF (0-5); WBC CLUMPS Few (None Seen)
[2021-05-03 16:14] LABS: BACTERIA-REFLEX None Seen /HPF (None Seen)
[2021-05-03 16:47] LABS: ABSOLUTE EOSINOPHILS 0.2 thou/uL (0.0-0.7); ABSOLUTE MONOCYTES 0.5 thou/uL (0.0-1.2); ABSOLUTE NEUTROPHILS 3.5 thou/uL (1.6-8.1); BASOPHILS 0.8 %; EOSINOPHILS 3.2 %; HEMATOCRIT 42.1 % (37.0-47.0); HEMOGLOBIN 14.3 gm/dL (12.0-15.0); LYMPHOCYTES 31.6 %; MCH 31.5 pg (26.0-34.0); MCHC 33.9 g/dL (28.0-37.0); MONOCYTES 8.3 %; NUCLEATED RBCS 0 /100WBC; PLATELET COUNT* 281 thou/uL (150-400); POLYS 56.1 %; RBC 4.53 mil/uL (4.20-5.00); WBC 6.3 thou/uL (4.0-11.0)
[2021-05-03 17:01] LABS: CALCIUM 9.1 mg/dL (8.5-10.1)
[2021-05-03 17:06] LABS: ALBUMIN 3.4 g/dL (3.4-5.0); TOTAL BILIRUBIN 0.5 mg/dL (<0.1-1.0)
[2021-05-03 18:25] VITALS: BP 154/72
[2021-05-03] MEDS ORDERED: DIFLUCAN150 MG PO (19:34)
[2021-05-03] MEDS ORDERED: NYSTATIN 100,0015 G1 TOP (19:34)
[2021-05-03] MEDS ORDERED: CEPHALEXIN500 MG PO (19:34)
--- NOTE | 2021-05-04 08:20 | EKG ---
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: : 1940 Requested By: Sheri Hargrove Order Number: [id number] MD: Jann Calderon Measurements Intervals [place] Rate: 71 P: DC: QRS: 18 QRSD: 92 T: -19 QT: 406 QTc: 442 Interpretive Statements NSR Inferior infarct, age indeterminate Probable anterior infarct, age indeterminate Compared to ECG 09/04/2020 19:17:49 Myocardial infarct finding still present Electronically Signed On 05-04-2021 8:19:54 CDT by Jann Calderon [email or web address] <ELECTRONICALLY SIGNED> By: Rohit Calderon MD, FAC 05/04/21 0819 1614 1614 Rohit Calderon MD, [facility] /EPI
== END 2021-05-03 18:27 | disposition home or self-care (01) ==
LOC: M.ERS 15:29
PROVIDERS: Physician Assistant
DX: N39.0 Urinary tract infection, site not specified (principal); E11.65 Type 2 diabetes mellitus with hyperglycemia; K21.9 Gastro-esophageal reflux disease without esophagitis; E78.5 Hyperlipidemia, unspecified; Z86.73 Personal history of transient ischemic attack (TIA), and cerebral infarction without residual deficits; Z90.711 Acquired absence of uterus with remaining cervical stump; Z79.899 Other long term (current) drug therapy; Z79.82 Long term (current) use of aspirin; Z88.8 Allergy status to other drugs, medicaments and biological substances; Z88.1 Allergy status to other antibiotic agents; Z88.6 Allergy status to analgesic agent; Z88.2 Allergy status to sulfonamides

== ENCOUNTER 2021-05-20 22:55 | Observation (INO) | payer MEDICARE ==
[~2021-05-20] VITALS: Ht 165.1 cm; Wt 63.8 kg
[~2021-05-20 22:55] MED LIST changes: +CELEXA 20 MG TA20 MG PO; +CEPHALEXIN500 MG PO; +DIFLUCAN150 MG PO; +FAMOTIDINE 20 M20 MG PO; +GLIMEPIRIDE1 MG PO; +NYSTATIN 100,0015 G1 TOP
[2021-05-20 23:03] VITALS: BP 129/72
[2021-05-20] MEDS ORDERED: SENNA PLUS TAB1 EACH PO (23:34)
[2021-05-20 23:35] LABS: ABSOLUTE BASOPHILS 0.1 thou/uL (0.0-0.2); ABSOLUTE EOSINOPHILS 0.4 thou/uL (0.0-0.7); ABSOLUTE LYMPHOCYTES 1.5 thou/uL (0.8-5.3); ABSOLUTE MONOCYTES 0.6 thou/uL (0.0-1.2); ABSOLUTE NEUTROPHILS 4.3 thou/uL (1.6-8.1); BASOPHILS 0.9 %; EOSINOPHILS 6.2 %; HEMATOCRIT 39.6 % (37.0-47.0); HEMOGLOBIN 13.6 gm/dL (12.0-15.0); LYMPHOCYTES 21.7 %; MCH 31.5 pg (26.0-34.0); MCHC 34.3 g/dL (28.0-37.0); MCV 91.9 fL (80.0-100.0); MONOCYTES 8.3 %; NUCLEATED RBCS 0 /100WBC; PLATELET COUNT* 237 thou/uL (150-400); POLYS 62.9 %; RBC 4.31 mil/uL (4.20-5.00); RDW-CV 12.1 % (10.5-14.5); WBC 6.9 thou/uL (4.0-11.0)
[2021-05-20] MEDS ORDERED: TRULICITY0.75 MG/0. SUBQ (23:35)
[2021-05-20] MEDS ORDERED: VITAMIN C500 M2 PO (23:35)
[2021-05-20 23:36] LABS: INFLUENZA A ANTIGEN Negative (Negative); INFLUENZA B ANTIGEN Negative (Negative)
[2021-05-20] MEDS ORDERED: VITAMIN D325 MC3 PO (23:36)
[2021-05-20] MEDS ORDERED: MUCINEX600 MG PO (23:36)
[2021-05-20] MEDS ORDERED: MOVIPREP POWDE1 EACH PO (23:37)
[2021-05-20] MEDS ORDERED: FLORASTOR250 MG PO (23:38)
[2021-05-20 23:48] LABS: CALCIUM 9.1 mg/dL (8.5-10.1); CREATININE 0.8 mg/dL (0.6-1.3); POTASSIUM 3.7 mmol/L (3.5-5.1)
[2021-05-20 23:59] LABS: ALBUMIN 3.5 g/dL (3.4-5.0); TOTAL BILIRUBIN 0.7 mg/dL (<0.1-1.0); TOTAL PROTEIN 7.1 g/dL (6.4-8.2)
[2021-05-21 01:12] LABS: URINE BILIRUBIN NEGATIVE (Negative); URINE BLOOD 1+ (Negative); URINE COLOR YELLOW; URINE GLUCOSE-RANDOM NEGATIVE (Negative); URINE KETONES NEGATIVE (Negative); URINE PROTEIN NEGATIVE (Negative); URINE SPECIFIC GRAVITY <= 1.005 (1.005-1.030); URINE UROBILINOGEN 0.2 E.U./dl (0.2-1.0)
[2021-05-21 01:13] LABS: URINE LEUKOCYTES-REFLEX 3+ (Negative); URINE NITRITE-REFLEX POSITIVE (Negative)
[2021-05-21 01:14] LABS: URINE CLARITY SL CLOUDY
[2021-05-21 01:22] LABS: BACTERIA-REFLEX >30 Many /HPF (None Seen); SQUAMOUS 0-3 Few /LPF (0-3); URINE WBC-REFLEX >25 Many /HPF (0-5); WBC CLUMPS Few (None Seen)
[2021-05-21 01:23] LABS: CRYSTALS None Seen /LPF (None Seen); FINE GRANULAR CASTS 0-3 Few /LPF (None Seen); HYALINE CASTS 0-3 Few /LPF (None Seen); MUCUS 0-3 Light strn/LPF (None Seen)
[2021-05-21 02:30] VITALS: BP 135/63
[2021-05-21 02:46] VITALS: BP 128/66
[2021-05-21 08:25] VITALS: BP 127/70
[2021-05-21 12:00] LABS: POTASSIUM 3.6 mmol/L (3.5-5.1)
--- NOTE | 2021-05-21 12:12 | EKG ---
[place] [address] ELECTROCARDIOGRAM REPORT Name: RICARDO BALDERAS Room: [address]#: [id number] Admission: 05/21/21 Attend Phys: Evans Ruiz Discharge: Date of : 38 Date of Service: 05/20/21 2258 Report #: [id number] THIS REPORT FOR: //name// [facility] ED Test Date: 2021-05-20 Test Time: 22:58:46 Pat Name: RICARDO BALDERAS Department: Room: [facility] Gender: F Paper Supervisor: [place] : 1940 Requested By: Kathleen Osman Order Number: [id number] MD: Evens Guevara Measurements Intervals [place] Rate: 86 P: 72 MT: 193 QRS: 23 QRSD: 86 T: -28 QT: 468 QTc: 560 Interpretive Statements Sinus rhythm Low voltage, precordial leads Nonspecific T abnrm, anterolateral leads Prolonged QT interval Anteroseptal infarct, old, possible Compared to ECG 05/03/2021 16:14:12 Low QRS voltage now present Prolonged QT interval now present Electronically Signed On 05-21-2021 12:12:31 CDT by Evens Guevara [email or web address] <ELECTRONICALLY SIGNED> By: Evens Guevara MD, FACC 05/21/21 1212 57 57 Evens Guevara MD, FAC /EPI
[2021-05-21 20:00] VITALS: BP 130/60
[2021-05-22 08:00] VITALS: BP 111/58
[2021-05-22 15:25] VITALS: BP 111/58
== END 2021-05-22 16:30 | disposition home or self-care (01) ==
LOC: M.ERS 22:55 → M.TBA-ER 05-21 01:52 → M.3W 05-21 01:52
PROVIDERS: Emergency Medicine; ADMIT Internal Medicine; ATTEND Internal Medicine
DX: J06.9 Acute upper respiratory infection, unspecified (principal); N30.01 Acute cystitis with hematuria; E11.65 Type 2 diabetes mellitus with hyperglycemia; Z20.822 Contact with and (suspected) exposure to COVID-19; K21.9 Gastro-esophageal reflux disease without esophagitis; E78.5 Hyperlipidemia, unspecified; Z79.84 Long term (current) use of oral hypoglycemic drugs; Z90.710 Acquired absence of both cervix and uterus; Z79.02 Long term (current) use of antithrombotics/antiplatelets; Z79.899 Other long term (current) drug therapy; Z79.82 Long term (current) use of aspirin; Z88.1 Allergy status to other antibiotic agents; Z88.5 Allergy status to narcotic agent; Z88.2 Allergy status to sulfonamides

== ENCOUNTER 2021-05-25 04:31 | Inpatient (IN) | payer MEDICARE ==
[~2021-05-25] VITALS: Ht 165.1 cm; Wt 58.5 kg
--- NOTE | ~2021-05-25 | CON ---
[address] [address] CONSULTATION Name: RICARDO BALDERAS Room: [address] IN M.R.#: [id number] Admission: 05/25/21 Attend Phys: Teo Dobbs Discharge: Date of : 38 Report #: [id number] THIS REPORT FOR: cc: Radha Sung Kathryn C. DO Khosla, Parveen K. MD ~ DATE OF CONSULTATION: 05/25/2021 HISTORY OF PRESENT ILLNESS: This is an 81-year-old female patient who was seen by me in the Emergency Room. The patient says that she was going to go to the bathroom and noticed that she started having a staring spell. She felt dizzy and became unresponsive for a few minutes. There was no tonic-clonic activity noticed during that episode. The patient is back to her normal self now. REVIEW OF SYSTEMS: Indicate that this patient has a prior history of what son described as intracerebral bleed. This happened a long time ago. She was in [facility] and then she was transferred to [facility]. What she had done up there is not clear. 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 Review of systems indicate that this patient had this episode. She has not had this kind of episode before. She has a history of urinary tract infection, some visual changes, dehydration, abdominal pain, head injury, headache, hyperglycemia, nausea, and vomiting. She is right-handed and she was also right-handed when the stroke happened. She denies any new chest pain, respiratory difficulty, urinary tract symptoms, musculoskeletal, constitutional, dermatological, hematological, psychiatric or throat symptom associated with present symptomatology. PAST MEDICAL HISTORY: What looks like basal ganglia bleed. FAMILY HISTORY: Unremarkable. SOCIAL HISTORY: She lives in some kind of supervised place where she says that she can call for help whenever help is needed. PHYSICAL EXAMINATION: Indicates she is alert. She is responsive. She was able to follow simple commands. She was partly oriented. Her speech does look somewhat different. Memory is diminished, but I suspect that is her baseline. Cranial nerve examination 2-12 was carried out. I cannot tell about hemianopsia, but she does have visual disturbances as per history. She has no movement of the left upper extremity, but she can move her left lower extremity reasonably well. Sensory system examination was difficult because of poor ability to cooperate. She has spasticity on the right side. It is difficult to tell cerebellar sign. I could not look at the [place] [address] CONSULTATION Name: RICARDO BALDERAS Vic Room: [address] IN .#: [id number] Admission: 05/25/21 Attend Phys: Teo Dobbs Discharge: Date of : 38 Report #: [id number] appear unremarkable. No respiratory difficulty was noticed. Her hearing and vision is adequate. There is no edema. Blood pressure is 138/63, respirations 18, pulse is 84, temperature is 97.5. LABORATORY DATA: White count is 7.6. GFR is 80. I reviewed her CT scan which demonstrated encephalomalacia in the right basal ganglia, which will be consistent with old bleed. I also reviewed the patient's imaging study in 11/2019, she had an MRI, which demonstrated a new stroke. IMPRESSION: This patient needs some further evaluation. She had a stroke and a bleed in the past that predisposed her for seizure. Seizures are difficult to prove or disprove in this patient because typically EEG is unremarkable. The workup has been ordered and we will see if she has a new stroke or a seizure and then recommend further treatment accordingly. Dr. Bonilla will follow up this patient with you from tomorrow. I discussed all of it with the patient in detail and she wants to follow the above plan. By: 58 99Yaniv Stone MD /richard
--- NOTE | ~2021-05-25 | EEG ---
[address] [address] EEG STUDY REPORT Name: RICARDO BALDERAS Room: [address] IN .R.#: [id number] Admission: 05/25/21 Attend Phys: Teo Dobbs Discharge: Date of : 38 Report #: [id number] THIS REPORT FOR: cc: Radha Sung Kathryn C. DO Khosla, Parveen K. MD ~ DATE OF SERVICE: 05/25/2021 This patient is being evaluated for an episode of syncope. EEG was done by placing the electrode by standard 10-20 system of electrode placement. Both referential and sequential montages were used for recording. This EEG is pretty significantly abnormal. It is asymmetrical. It is slower on the right side as compared to the left side. Activity is also unstable on the right side. I do not see any clear spike and slow wave activity. Photic stimulation is unremarkable. IMPRESSION: This is an abnormal EEG because it is asymmetrical. On the right side, EEG is poorly formed and unstable. There is no clear cut spike and slow wave activity, which was noticed. Thank you very much for this referral. By: [id number] 37Parvashti Stone MD /nt
[~2021-05-25 04:31] MED LIST changes: +FLORASTOR250 MG PO; +MOVIPREP POWDE1 EACH PO; +MUCINEX600 MG PO; +SENNA PLUS TAB1 EACH PO; +TRULICITY0.75 MG/0. SUBQ; +VITAMIN C500 M2 PO; +VITAMIN D325 MC3 PO
[2021-05-25 04:38] VITALS: BP 121/57
[2021-05-25 05:12] LABS: ABSOLUTE EOSINOPHILS 0.5 thou/uL (0.0-0.7); ABSOLUTE LYMPHOCYTES 2.7 thou/uL (0.8-5.3); ABSOLUTE MONOCYTES 0.5 thou/uL (0.0-1.2); BASOPHILS 0.5 %; EOSINOPHILS 6.8 %; HEMATOCRIT 42.1 % (37.0-47.0); HEMOGLOBIN 14.2 gm/dL (12.0-15.0); LYMPHOCYTES 34.7 %; MCH 31.3 pg (26.0-34.0); MCHC 33.8 g/dL (28.0-37.0); MCV 92.6 fL (80.0-100.0); MONOCYTES 6.1 %; MPV 7.2 fl. (7.2-11.1); NUCLEATED RBCS 0 /100WBC; PLATELET COUNT* 290 thou/uL (150-400); POLYS 51.9 %; RBC 4.55 mil/uL (4.20-5.00); RDW-CV 12.5 % (10.5-14.5); WBC 7.6 thou/uL (4.0-11.0)
[2021-05-25 05:47] LABS: CALCIUM 9.1 mg/dL (8.5-10.1); CREATININE 0.7 mg/dL (0.6-1.3); POTASSIUM 3.9 mmol/L (3.5-5.1)
[2021-05-25 05:51] LABS: ALBUMIN 3.4 g/dL (3.4-5.0); MAGNESIUM 1.6 mg/dL (1.8-2.4); TOTAL BILIRUBIN 0.6 mg/dL (<0.1-1.0); TOTAL PROTEIN 6.5 g/dL (6.4-8.2)
[2021-05-25 05:54] LABS: URINE BILIRUBIN NEGATIVE (Negative); URINE BLOOD NEGATIVE (Negative); URINE CLARITY CLEAR; URINE COLOR YELLOW; URINE GLUCOSE-RANDOM NEGATIVE (Negative); URINE KETONES NEGATIVE (Negative); URINE LEUKOCYTES-REFLEX NEGATIVE (Negative); URINE NITRITE-REFLEX NEGATIVE (Negative); URINE PROTEIN NEGATIVE (Negative); URINE UROBILINOGEN 0.2 E.U./dl (0.2-1.0)
--- NOTE | 2021-05-25 08:12 | EKG ---
[place] [address] ELECTROCARDIOGRAM REPORT Name: RICARDO BALDERAS Room: [place] [address] ADM IN .#: [id number] Admission: 05/25/21 Attend Phys: Christina Boyer Discharge: Date of : 38 Date of Service: 05/25/21 0436 Report #: [id number] THIS REPORT FOR: //name// [facility] ED Test Date: 2021-05-25 Test Time: 04:36:34 Pat Name: RICARDO BALDERAS Department: Room: [facility] Gender: F Compliance Counsel: [place] : 1940 Requested By: Kathleen Osman Order Number: [id number] MD: Evens Guevara Measurements Intervals [place] Rate: 80 P: 76 [place]: 200 QRS: 36 QRSD: 80 T: 58 QT: 496 QTc: 573 Interpretive Statements Sinus rhythm Anteroseptal infarct, age indeterminate Prolonged QT interval Compared to ECG 05/20/2021 22:58:46 No significant changes Electronically Signed On 05-25-2021 8:11:54 CDT by Evens Guevara [email or web address] <ELECTRONICALLY SIGNED> By: Evens Guevara MD, FACC 05/25/21810 5 5 Evens Guevara MD, FAC /EPI
[2021-05-25 09:28] LABS: CHOLESTEROL 105 mg/dL (<200); HDL CHOLESTEROL 34 mg/dL (>40); LDL CHOLESTEROL 47 mg/dL (<100); TC:HDL 3.1 Ratio (Not establshd); TRIGLYCERIDE 123 mg/dL (<150); VLDL 25 mg/dL (<40)
[2021-05-25 09:29] LABS: SERUM ASSESSMENT Clear
[2021-05-25 11:58] VITALS: BP 106/51
--- NOTE | 2021-05-25 13:59 | 2DMMODE ---
[place] [address] 2 D/M-MODE ECHOCARDIOGRAM Name: RICARDO BALDERAS Room: [place] [address] ADM IN [facility]#: [id number] Admission: 05/25/21 Attend Phys: Christina Boyer Discharge: Date of : 38 Date of Service: 05/25/21 1358 Report #: [id number] THIS REPORT FOR: cc: Radha Sung Kathryn C. DO Liston, Michael J. MD [facility] ~ APPROVED REPORT Study performed: 05/25/2021 10:22:19 EXAM: Comprehensive 2D, Doppler, and color-flow Echocardiogram Patient Location: In-Patient Room #: er Status: routine BSA: 1.71 HR: 82 bpm BP: 121/64 mmHg Rhythm: NSR Other Information Study Quality: Good Indications CVA/TIA Echo Enhancing Agent Indication: Rule out Shunt Agent(s) / Amount(s) Used: Agitated Saline 10 cc 2D Dimensions IVSd: 8.83 (7-11mm) LVOT Diam: 20.74 (18-24mm) LVDd: 42.93 mm PWd: 9.31 (7-11mm) Ascending Ao: 33.58 (22-36mm) LVDs: 25.25 (25-40mm) Aortic Root: 34.41 mm Volumes Left Atrial Volume (Systole) LA ESV Index: 11.90 mL/m2 Aortic Valve AoV Peak Alin.: 0.95 m/s AO Peak Gr.: 3.64 mmHg LVOT Max P.52 mmHg AO Mean Gr.: 1.83 mmHg LVOT Mean P.09 [place] [address] 2 D/M-MODE ECHOCARDIOGRAM Name: RICARDO BALDERAS Room: [address] IN .R.#: [id number] Admission: 05/25/21 Attend Phys: Christina Boyer Discharge: Date of : 38 Date of Service: 05/25/21 1358 Report #: [id number] LVOT Max V: 0.79 m/s AO V2 VTI: 17.43 cm LVOT Mean V: 0.47 m/s MILTON (VTI): 2.81 cm2 LVOT V1 VTI: 14.53 cm Mitral Valve E/A Ratio: 0.50 MV Decel. Time: 155.40 ms MV E Max Alin.: 0.44 m/s MV PHT: 45.06 ms MVA (PHT): 4.88 cm2 TDI E/Lateral E': 6.29 E/Medial E': 5.50 Medial E' Alin.: 0.08 m/s Lateral E' Alin.: 0.07 m/s Pulmonary Valve PV Peak Alin.: 0.59 m/s PV Peak Gr.: 1.38 mmHg Left Ventricle The left ventricle is normal size. There is normal LV segmental wall motion. There is normal left ventricular wall thickness. Left ventricular systolic function is normal. LVEF is 55-60%. Grade I - abnormal relaxation pattern. Right Ventricle The right ventricle is normal size. The right ventricular systolic function is normal. Atria The left atrium size is normal. The interatrial septum is intact with no evidence for an atrial septal defect. The right atrium size is normal. Aortic Valve The aortic valve is normal in structure. Mild aortic regurgitation. There is no aortic valvular stenosis. Mitral Valve The mitral valve is normal in structure. Trace mitral regurgitation. No evidence of mitral valve stenosis. Tricuspid Valve The tricuspid valve is normal in structure. Doppler gradients for this tricuspid prosthetic valve are normal. Trace tricuspid regurgitation. Unable to [place] [address] 2 D/M-MODE ECHOCARDIOGRAM Name: RICARDO BALDERAS Room: [address] IN [facility]#: [id number] Admission: 05/25/21 Attend Phys: Christina Boyer Discharge: Date of : 38 Date of Service: 05/25/21 1358 Report #: [id number] Pulmonic Valve The pulmonary valve is normal in structure. Trace pulmonic regurgitation. Great Vessels The aortic root is normal in size. IVC is normal in size and collapses >50% with inspiration. Pericardium There is no pericardial effusion. <Conclusion> The left ventricle is normal size. There is normal left ventricular wall thickness. Left ventricular systolic function is normal. LVEF is 55-60%. Grade I - abnormal relaxation pattern. There is normal LV segmental wall motion. Mild aortic regurgitation. IVC is normal in size and collapses >50% with inspiration. The interatrial septum is intact with no evidence for an atrial septal defect. <ELECTRONICALLY SIGNED> By: Evens Guevara MD, FACC 05/25/21 1358 1358 1358 Evens Guevara MD, FACC /INF
[2021-05-25 15:52] VITALS: BP 138/63
--- NOTE | 2021-05-25 16:49 | NUR ---
cm completed an assessment w/ the pt, pt indicated she lives in [facility] and her spouse lives in [facility] memory care [facility]. pt indicated she has used [facility] "a long time ago." pt uses w/c, cane and o2 at 2l. pt doesnt remember ever staying at [facility]. pt receives assistance with adls. cm to cont to follow.
[2021-05-25 19:50] VITALS: BP 95/76
--- NOTE | 2021-05-25 20:22 | NUR ---
EVELIN APPLIED FOR INCONTINENCE. BENEFITS EXPLAINED TO THE PATIENT.
[2021-05-25 21:00] VITALS: BP 120/58
[2021-05-25 21:08] VITALS: BP 95/76
[2021-05-26] VITALS (9 sets, daily range): BP systolic 125–161; BP diastolic 58–83
[2021-05-26 05:33] LABS: CREATININE 0.6 mg/dL (0.6-1.3); POTASSIUM 3.6 mmol/L (3.5-5.1); TOTAL BILIRUBIN 0.7 mg/dL (<0.1-1.0); TOTAL PROTEIN 6.2 g/dL (6.4-8.2)
--- NOTE | 2021-05-26 15:56 | NUR ---
POC UPDATE: CM FAXED REFERRAL TO [facility]. [phone].
[2021-05-27 00:51] VITALS: BP 119/62
[2021-05-27 04:00] VITALS: BP 102/62; BP 155/76
[2021-05-27 04:02] VITALS: BP 157/72
[2021-05-27 04:04] VITALS: BP 120/87
[2021-05-27 05:07] LABS: GLYCOHEMOGLOBIN (HGB A1C) 11.7 % (4.8-5.6)
[2021-05-27 08:00] VITALS: BP 154/71
[2021-05-27] MEDS ORDERED: TESSALON PERLE100 MG PO (10:28)
[2021-05-27 12:41] VITALS: BP 124/64
[2021-05-27 12:46] LABS: INFLUENZA A ANTIGEN Negative (Negative); INFLUENZA B ANTIGEN Negative (Negative)
--- NOTE | 2021-05-27 17:13 | NUR ---
I ASSUMED CARE OF THE PATIENT AT 0700. SHE IS ALERT AND ORIENTED X4 AND IS UP WITH ASSIST OF 1, A GAIT BELT AND A WALKER. BED IS IN THE LOW LOCKED POSITION, ALARM IS ON, AND CALL LIGHT IS IN REACH. PATIENT NEEDS ARE MET DURING HOURLY ROUNDING AND PAIN IS DENIED. PRN MEDS WERE GIVEN TO FOR CONSTIPATION. SHE IS REPOSITIONED EVERY 2 HOURS. BLOOD GLUCOSE IS MOITORED. DISCHARGE IS EXPLAINED TO PATIENT AND HER SON. [facility] WAS SENT OVER AND FAXED TO FACILITY. 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 SHE IS DISCHARGED WITH HER SON IN A PRIVATE VEHICLE AT 1700.
== END 2021-05-27 17:00 | DRG 202 ==
LOC: M.ERS 04:31 → M.ORTHSURG 07:52 → M.TBA-ER 07:52 → M.ORTHSURG 22:15
PROVIDERS: Emergency Medicine; Internal Medicine; ADMIT Internal Medicine; ATTEND Internal Medicine
DX: J20.9 Acute bronchitis, unspecified (principal); G93.41 Metabolic encephalopathy; E44.1 Mild protein-calorie malnutrition; Z20.822 Contact with and (suspected) exposure to COVID-19; K21.9 Gastro-esophageal reflux disease without esophagitis; E78.5 Hyperlipidemia, unspecified; E11.9 Type 2 diabetes mellitus without complications; H54.7 Unspecified visual loss; Z86.73 Personal history of transient ischemic attack (TIA), and cerebral infarction without residual deficits; Z90.710 Acquired absence of both cervix and uterus; Z88.2 Allergy status to sulfonamides; Z88.8 Allergy status to other drugs, medicaments and biological substances; Z88.1 Allergy status to other antibiotic agents; Z91.013 Allergy to seafood; Z68.21 Body mass index [BMI] 21.0-21.9, adult

== ENCOUNTER 2021-08-25 14:53 | Emergency (ER) | payer OTHER ==
[~2021-08-25] VITALS: Ht 165.1 cm; Wt 111.4 kg
[~2021-08-25 14:53] MED LIST changes: +TESSALON PERLE100 MG PO
[2021-08-25 16:37] LABS: HEMATOCRIT 36.7 % (37.0-47.0); HEMOGLOBIN 12.4 gm/dL (12.0-15.0); MCH 31.4 pg (26.0-34.0); MCHC 33.9 g/dL (28.0-37.0); MCV 92.7 fL (80.0-100.0); MPV 7.3 fl. (7.2-11.1); NUCLEATED RBCS 0 /100WBC; PLATELET COUNT* 361 thou/uL (150-400); RBC 3.96 mil/uL (4.20-5.00); RDW-CV 12.5 % (10.5-14.5); WBC 5.9 thou/uL (4.0-11.0)
[2021-08-25 17:00] LABS: ABSOLUTE BASOPHILS 0.1 thou/uL (0.0-0.2); ABSOLUTE EOSINOPHILS 0.4 thou/uL (0.0-0.7); ABSOLUTE LYMPHOCYTES 2.1 thou/uL (0.8-5.3); ABSOLUTE MONOCYTES 0.4 thou/uL (0.0-1.2); PLATELET ESTIMATE ADEQUATE
[2021-08-25 17:38] LABS: CALCIUM 9.5 mg/dL (8.5-10.1); CREATININE 0.9 mg/dL (0.6-1.3); POTASSIUM 4.2 mmol/L (3.5-5.1)
[2021-08-25 17:49] LABS: ALBUMIN 3.4 g/dL (3.4-5.0); TOTAL BILIRUBIN 0.4 mg/dL (<0.1-1.0); TOTAL PROTEIN 6.9 g/dL (6.4-8.2)
[2021-08-25 18:16] VITALS: BP 105/54
--- NOTE | 2021-08-26 12:13 | EKG ---
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 : 1940 Requested By: Paramjit Ying Order Number: [id number] MD: Evens Guevara Measurements Intervals [place] Rate: 69 P: 30 NH: 202 QRS: -16 QRSD: 102 T: -13 QT: 401 QTc: 430 Interpretive Statements Sinus rhythm Inferior infarct, age indeterminate Anterior infarct, age indeterminate Compared to ECG 05/25/2021 04:36:34 Prolonged QT interval no longer present Myocardial infarct finding still present Electronically Signed On 08-26-2021 12:13:32 CONSTRUCTION SITE MANAGER by Evens Guevara [email or web address] <ELECTRONICALLY SIGNED> By: Evens Guevara MD, FAC 08/26/21 1213 151 151 Evens Guevara MD, [facility] /EPI
== END 2021-08-25 21:11 | disposition home or self-care (01) ==
LOC: M.ERS 14:53
PROVIDERS: Emergency Medicine
DX: R40.0 Somnolence (principal); Z20.822 Contact with and (suspected) exposure to COVID-19; R05.9 Cough, unspecified; R06.02 Shortness of breath; R53.83 Other fatigue; R29.810 Facial weakness; R53.1 Weakness; K21.9 Gastro-esophageal reflux disease without esophagitis; E78.5 Hyperlipidemia, unspecified; Z86.73 Personal history of transient ischemic attack (TIA), and cerebral infarction without residual deficits; Z90.710 Acquired absence of both cervix and uterus; Z79.2 Long term (current) use of antibiotics; Z79.899 Other long term (current) drug therapy; Z79.82 Long term (current) use of aspirin; Z88.8 Allergy status to other drugs, medicaments and biological substances; Z88.1 Allergy status to other antibiotic agents; Z91.013 Allergy to seafood; Z88.2 Allergy status to sulfonamides